=== PATIENT | female | born 1975 | race Caucasian/White ===

== ENCOUNTER → 2020-06-16 | Outpatient (CLI) | payer MEDICAID | END | disposition home or self-care (01) | LOC: RAD 14:37 | PROVIDERS: ATTEND Family Medicine | DX: E04.1 Nontoxic single thyroid nodule (principal); R94.6 Abnormal results of thyroid function studies; Z20.828 Contact with and (suspected) exposure to other viral communicable diseases | CPT/HCPCS: 76536 ==

== ENCOUNTER 2020-08-05 13:25 | Outpatient (CLI) | payer MEDICAID ==
[2020-08-05] MEDS ORDERED: LIDOCAINE 1%, 10ML ONE (13:36)
== END 2020-08-05 23:59 | disposition home or self-care (01) ==
LOC: RAD 13:25
PROVIDERS: ATTEND Surgery
DX: E07.89 Other specified disorders of thyroid (principal)
CPT/HCPCS: 10005; 88173; J3490